=== PATIENT | female | born 1995 | race Caucasian/White ===

== ENCOUNTER 2017-09-07 14:42 | Observation (INO) ==
[2017-09-07] MEDS ORDERED: LEVSIN/MAALOX/LIDOC VISC PO PRN ×2 (15:24→17:01)
[2017-09-07] MEDS ORDERED: NORCO 7.5/325 MG TAB PO PRN ×2 (15:24→17:01)
[2017-09-07] MEDS ORDERED: REGLAN INJ 10 MG VIAL IVP PRN ×2 (15:24→17:01)
[2017-09-07] MEDS ORDERED: PROTONIX INJ 40 MG VIAL IVP SCH (16:00)
[2017-09-07] MEDS ORDERED: NS 1000 ML 1,000 ML IV SCH (16:00)
[2017-09-07 17:09] LABS: BASOPHILS % (AUTO) 0.4 % (0.2-1.0); EOSINOPHILS # (AUTO) 0.2 x10^3/uL (0.0-0.2); EOSINOPHILS % (AUTO) 1.8 % (0.9-2.9); HEMOGLOBIN 15.1 g/dL (12.0-16.0); LYMPHOCYTES # (AUTO) 2.2 X10^3/uL (1.3-2.9); LYMPHOCYTES % (AUTO) 20.3 % (21.0-51.0); MEAN CORPUSCULAR HGB CONC 34.3 g/dL (33.0-35.0); MEAN CORPUSCULAR VOLUME 90.2 fL (80.0-100.0); MEAN PLATELET VOLUME 6.9 fL (7.4-11.0); MONOCYTES # (AUTO) 0.7 x10^3/uL (0.3-0.8); MONOCYTES % (AUTO) 6.4 % (0.0-13.0); NEUTROPHILS # (AUTO) 7.7 x10^3/uL (2.2-4.8); NEUTROPHILS % (AUTO) 71.1 % (42.0-75.0); PLATELET COUNT 365 X10^3/uL (150.0-450.0); RED BLOOD COUNT 4.88 X10^6/uL (3.5-5.4); RED CELL DISTRIBUTION WIDTH 13.6 % (11.6-16.5); WHITE BLOOD COUNT 10.9 X10^3/uL (3.6-10.0)
[2017-09-07] MEDS ORDERED: AMBIEN PO PRN (17:14)
[2017-09-07 17:18] LABS: ALANINE AMINOTRANSFERASE 39 Units/L (12-78); ALBUMIN 3.8 g/dL (3.4-5.0); ALKALINE PHOSPHATASE 66 Units/L (45-150); AMYLASE 44 Units/L (25-115); ASPARTATE AMINO TRANSFERASE 19 Units/L (15-37); BLOOD UREA NITROGEN 11 mg/dL (7-18); CALCIUM 8.1 mg/dL (8.5-10.1); CARBON DIOXIDE 24.1 mmol/L (21-32); CHLORIDE 102 mmol/L (98-107); CREATININE 0.63 mg/dL (0.55-1.02); LIPASE 92 Units/L (73-393); SODIUM 136 mmol/L (136-145); TOTAL PROTEIN 7.4 g/dL (6.4-8.2); eGFR NON BLACK RACES > 60 (>60)
[2017-09-07 17:19] LABS: SERUM PREGNANCY TEST, QUAL POSITIVE >10 mIU/mL
[2017-09-07 17:48] LABS: BILIRUBIN,URINE NEGATIVE (NEGATIVE); BLOOD/HEMOGLOBIN,URINE NEGATIVE (NEGATIVE); GLUCOSE, URINE NEGATIVE (NEGATIVE); KETONES,URINE 2+ (NEGATIVE); LEUKOCYTE ESTERASE ,URINE 1+ (NEGATIVE); NITRITES,URINE NEGATIVE (NEGATIVE); PROTEIN,URINE NEGATIVE (NEGATIVE); UROBILINOGEN,URINE NORMAL (NORMAL)
[2017-09-07 17:56] LABS: APPEARANCE,URINE SLIGHTLY HAZY (CLEAR); BACTERIA,URINE TRACE /HPF (NEGATIVE); COLOR,URINE YELLOW (YELLOW); RBC,URINE 0-2 /HPF (NONE SEEN); SQUAMOUS EPITHELIAL CELL,UR MANY /HPF (NEGATIVE)
[2017-09-07] MEDS ORDERED: ZOFRAN INJ 4 MG VIAL IVP PRN (18:04)
[2017-09-07] MEDS ORDERED: ZOFRAN INJ 4 MG VIAL ONE (18:06)
[2017-09-07 18:20] VITALS: BMI 28.5
--- NOTE | 2017-09-07 18:25 | DR.H&P ---
H&P - History & Physical for Day of: H&P Date: 09/07/17 - Chief Complaint Chief Complaint: ABDOMINAL PAIN, N/V/D, DEHYDRATED - Allergies Allergies/Adverse Reactions: Allergies Allergy/AdvReac Type Severity Reaction Status Date / Time hydromorphone [From Dilaudid] Allergy Unknown Verified 09/07/17 15:27 - History of Present Illness History of Present Illness: 21 WF DIRECT ADMIT FROM DR KRISHNAMURTHY OFFICE WITH CO ABDOMINAL PAIN FOR 4-5 DAYS WITH INTRACTABLE N/V. PT HAS PMH OF REFLUX, PT HAS HAD GALLBLADDER REMOVED, HX STONES PT STATES PAIN IS SIMILAR TO BEFORE SHE GALLBLADDER REMOVED. PT STATES SHE HAS TAKEN PPI'S, ANTACIDS, ANTIEMETICS WITHOUT IMPROVEMENT, CANT KEEP ANYTHING PO DOWN. PT CO GENERALIZED WEAKNESS AND NOTED TO HAVE DRY MM IN OFFICE AND MODERATE DISTRESS DUE TO PAIN. PT ADMITTED FOR TREATEMENT AND EVALUATION OF ABDMONIAL PAIN. - Past Medical History Past Medical History: GERD Additional Medical History: ENDOMETRIOSIS - Past Surgical History Surgical History: Cholecystectomy, Other - Family History Family Medical History: Diabetes Mellitus, Cancer, [place], Hypertension - Social History Does patient currently use any type of tobacco product: No Have you used tobacco products in the last 12 months: No Type of Tobacco Use: None Does any household member use tobacco: Yes (MOTHER AND FATHER) Alcohol Use: None, Occasionally Drug Use: Prescription Drugs - Medications Home Medications: Acetaminophen/Diphenhydramine [Tylenol Pm Ex-Strength Caplet] 1 tab PO HS PRN [History Confirmed 09/07/17] Dicyclomine HCl 1 tab PO BID PRN 09/07/17 [History Confirmed 09/07/17] Famotidine [Acid Enrobing Machine Operator] 1 tab PO DAILY 09/07/17 [History Confirmed 09/07/17] - Review of Systems Constitutional: Chills, Weakness, Malaise Eyes: No Symptoms Reported ENT: No Symptoms Reported Respiratory: No Symptoms Reported Cardiovascular: No Symptoms Reported Gastrointestinal: Nausea, Vomiting, Abdominal Pain, Diarrhea Genitourinary: No Symptoms Reported Musculoskeletal: No Symptoms Reported Skin: No Symptoms Reported Neurological: Weakness - Physical Exam Vital Signs: Temperature 98.4 F Pulse Rate [Left Radial] 102 Respiratory Rate 20 Blood Pressure [Right Arm] 130/85 Blood Pressure 118/69 O2 Sat by Pulse Oximetry 97 Oriented: Normal Eyes: Normal Ear: Normal Nose: Normal Throat: Dry Respiratory: Clear Throughout Cardiovascular: Normal : Normal Auscultation: Bowel Sounds: Increased Tenderness: RUQ, LUQ, Epigastric, Moderate Skin: Decreased Turgur Musculoskeletal: Normal Affect: Anxious Speech Pattern: Clear, Appropriate - Assessment/Plan (1) Abdominal pain Status: Acute Plan: ADMIT, ADMISSION LABS CBC CMP UA, UHCG. IV HYDRATION, PAIN AND [place] CONTROL. ABD SERIES ON ADMISSION, PPI'S. REGLAN IV, NPO (2) Intractable nausea and vomiting Status: Acute (3) Dehydration Status: Acute (4) GERD (gastroesophageal reflux disease) Status: Acute
--- NOTE | 2017-09-07 19:24 | US ---
OB ultrasound Indication: Positive test with abdominal pain, beta HCG is 709 Comparison: None available Technique: Multiple grayscale and color flow Doppler images of the pelvis were obtained. Findings: The uterus measures 4.9 x 3.4 x 3.9 cm. No hypoechoic collection or gestational sac identified within the uterus. Endometrial echo complex is unremarkable. The right ovary demonstrates several small hyp oechoic lesions consistent with cyst. The right ovary measures 2.4 x 2.2 x 3.2 cm with normal color D oppler flow. The left ovary was not able be identified. No pelvic free fluid. Impression: 1.Indeterminate examination as no gestational sac is identified. Findings can be seen in setting of e jose normal IUP, missed or ectopic . At this time there is no sonographic abnormali ty to raise the suspicion for ectopic . Clinical, sonographic and beta HCG follow-up is kehinde mmended. 2. Several small cysts are noted within the right ovary, the size of the ovary and size of cysts do n ot meet criteria for PCOS. 3.The left ovary was not able to be visualized. Reported By:
[2017-09-07] MEDS ORDERED: NS 1000 ML 1,000 ML ONE (20:37)
[2017-09-07] MEDS ORDERED: PHENERGAN INJ 25 MG IV PRN (22:17)
[2017-09-08] MEDS ORDERED: NS 1000 ML 1,000 ML IV SCH (06:00)
[2017-09-08] MEDS ORDERED: PROTONIX INJ 40 MG VIAL IVP SCH (09:00)
[2017-09-08 14:09] LABS: ALANINE AMINOTRANSFERASE 36 Units/L (12-78); ALBUMIN 3.1 g/dL (3.4-5.0); ALKALINE PHOSPHATASE 55 Units/L (45-150); ASPARTATE AMINO TRANSFERASE 20 Units/L (15-37); BASOPHILS % (AUTO) 0.4 % (0.2-1.0); BLOOD UREA NITROGEN 10 mg/dL (7-18); CALCIUM 7.8 mg/dL (8.5-10.1); CARBON DIOXIDE 22.5 mmol/L (21-32); CHLORIDE 106 mmol/L (98-107); COR CA(FOR HYPOALB) 8.5 mg/dL (8.5-10.1); CREATININE 0.63 mg/dL (0.55-1.02); EOSINOPHILS # (AUTO) 0.3 x10^3/uL (0.0-0.2); EOSINOPHILS % (AUTO) 2.5 % (0.9-2.9); HEMATOCRIT 38.8 % (36.0-47.0); HEMOGLOBIN 13.5 g/dL (12.0-16.0); LYMPHOCYTES % (AUTO) 29.4 % (21.0-51.0); MEAN CORPUSCULAR HEMOGLOBIN 31.6 pg (27.0-34.0); MEAN CORPUSCULAR HGB CONC 34.7 g/dL (33.0-35.0); MEAN PLATELET VOLUME 7.2 fL (7.4-11.0); MONOCYTES # (AUTO) 0.8 x10^3/uL (0.3-0.8); MONOCYTES % (AUTO) 7.6 % (0.0-13.0); NEUTROPHILS # (AUTO) 6.2 x10^3/uL (2.2-4.8); NEUTROPHILS % (AUTO) 60.1 % (42.0-75.0); PLATELET COUNT 329 X10^3/uL (150.0-450.0); RED BLOOD COUNT 4.27 X10^6/uL (3.5-5.4); RED CELL DISTRIBUTION WIDTH 13.3 % (11.6-16.5); SODIUM 139 mmol/L (136-145); TOTAL PROTEIN 6.1 g/dL (6.4-8.2); WHITE BLOOD COUNT 10.4 X10^3/uL (3.6-10.0); eGFR NON BLACK RACES > 60 (>60)
[2017-09-08 15:56] VITALS: BP 102/54
--- NOTE | 2017-10-03 22:55 | PCM.DCPLAN ---
Discharge Summary - Admission Date Date of Admission: 09/07/17 - Discharge Date Discharge Date: 09/08/17 - Admission Diagnoses (1) Abdominal pain Status: Acute (2) Dehydration Status: Acute (3) GERD (gastroesophageal reflux disease) Status: Acute (4) Intractable nausea and vomiting Status: Acute - Discharge Diagnoses Discharge Diagnosis: SAME ADMISSION DIAGNOSIS - Discharge Medications Discharge Medications: Home Medication List dicyclomine 1 tab PO BID PRN 09/07/17 [History] diphenhydramine-acetaminophen [Tylenol Pm Ex-Strength Caplet] 1 tab PO HS PRN [History] famotidine [Acid Veterinary Attendant] 1 tab PO DAILY 09/07/17 [History] Prescriptions: - Hospital Course Vital Signs: Temperature 98 F Pulse Rate [Left Radial] 82 Respiratory Rate 20 Blood Pressure [Left Arm] 102/54 Blood Pressure [Right Arm] 130/85 Blood Pressure 118/69 O2 Sat by Pulse Oximetry 98 Latest Lab Results: Laboratory Last Values WBC 10.4 X10^3/uL (3.6-10.0) H 09/08/17 05:10 RBC 4.27 X10^6/uL (3.5-5.4) 09/08/17 05:10 Hgb 13.5 g/dL (12.0-16.0) 09/08/17 05:10 Hct 38.8 % (36.0-47.0) 09/08/17 05:10 MCV 91.0 fL (80.0-100.0) 09/08/17 05:10 MCH 31.6 pg (27.0-34.0) 09/08/17 05:10 MCHC 34.7 g/dL (33.0-35.0) 09/08/17 05:10 RDW 13.3 % (11.6-16.5) 09/08/17 05:10 Plt Count 329 X10^3/uL (150.0-450.0) 09/08/17 05:10 MPV 7.2 fL (7.4-11.0) L 09/08/17 05:10 Neut % (Auto) 60.1 % (42.0-75.0) 09/08/17 05:10 Lymph % (Auto) 29.4 % (21.0-51.0) 09/08/17 05:10 [place] % (Auto) 7.6 % (0.0-13.0) 09/08/17 05:10 Eos % (Auto) 2.5 % (0.9-2.9) 09/08/17 05:10 Baso % (Auto) 0.4 % (0.2-1.0) 09/08/17 05:10 Neut # (Auto) 6.2 x10^3/uL (2.2-4.8) H 09/08/17 05:10 Lymph # (Auto) 3.0 X10^3/uL (1.3-2.9) H 09/08/17 05:10 [place] # (Auto) 0.8 x10^3/uL (0.3-0.8) 09/08/17 05:10 Eos # (Auto) 0.3 x10^3/uL (0.0-0.2) H 09/08/17 05:10 Baso # (Auto) 0.0 X10^3/uL (0.0-0.1) 09/08/17 05:10 Absolute Nucleated RBC 0.1 /100WBC 09/08/17 05:10 Sodium 139 mmol/L (136-145) 09/08/17 05:10 Corrected Sodium TNP 09/08/17 05:10 Potassium 4.1 mmol/L (3.5-5.1) 09/08/17 05:10 Chloride 106 mmol/L (98-107) 09/08/17 05:10 Carbon Dioxide 22.5 mmol/L (21-32) 09/08/17 05:10 BUN 10 mg/dL (7-18) 09/08/17 05:10 Creatinine 0.63 mg/dL (0.55-1.02) 09/08/17 05:10 Est GFR (MDRD) Af Amer > 60 (>60) 09/08/17 05:10 Est GFR (MDRD) Non-Af > 60 (>60) 09/08/17 05:10 Glucose 81 mg/dL (65-99) 09/08/17 05:10 Calcium 7.8 mg/dL (8.5-10.1) L 09/08/17 05:10 Corrected Calcium 8.5 mg/dL (8.5-10.1) 09/08/17 05:10 Total Bilirubin 0.20 mg/dL (0.2-1.0) 09/08/17 05:10 AST 20 Units/L (15-37) 09/08/17 05:10 ALT 36 Units/L (12-78) 09/08/17 05:10 Alkaline Phosphatase 55 Units/L (45-150) 09/08/17 05:10 Total Protein 6.1 g/dL (6.4-8.2) L 09/08/17 05:10 Albumin 3.1 g/dL (3.4-5.0) L 09/08/17 05:10 Globulin 3.0 g/dL (2.5-4.5) 09/08/17 05:10 Albumin/Globulin Ratio 1.0 Ratio (1.1-2.1) L 09/08/17 05:10 Amylase 44 Units/L (25-115) 09/07/17 16:54 Lipase 92 Units/L (73-393) 09/07/17 16:54 HCG, Qual Positive >10 mIU/mL 09/07/17 16:54 HCG, Quant 709 mIU/mL (0-6) H 09/07/17 16:54 Specimen Type Clean catch urine 09/07/17 17:24 Urine Color Yellow (YELLOW) 09/07/17 17:24 Urine Appearance Slightly hazy (CLEAR) 09/07/17 17:24 Urine pH 6.0 (5.0 - 8.0) 09/07/17 17:24 Ur Specific [place] 1.015 (1.000-1.030) 09/07/17 17:24 Urine Protein Negative (NEGATIVE) 09/07/17 17:24 Urine Glucose (UA) Negative (NEGATIVE) 09/07/17 17:24 Urine Ketones 2+ (NEGATIVE) 09/07/17 17:24 Urine Occult Blood Negative (NEGATIVE) 09/07/17 17:24 Urine Nitrite Negative (NEGATIVE) 09/07/17 17:24 Urine Bilirubin Negative (NEGATIVE) 09/07/17 17:24 Urine Urobilinogen Normal (NORMAL) 09/07/17 17:24 Ur Leukocyte Esterase 1+ (NEGATIVE) 09/07/17 17:24 Urine RBC 0-2 /HPF (NONE SEEN) 09/07/17 17:24 Urine WBC 3-5 /HPF (NONE SEEN) 09/07/17 17:24 Ur Squamous Epith Cells Many /HPF (NEGATIVE) 09/07/17 17:24 Urine Bacteria Trace /HPF (NEGATIVE) 09/07/17 17:24 Ur Culture Indicated? No/not indicated 09/07/17 17:24 Hospital Course: 21 WF DIRECT ADMIT FROM DR KRISHNAMURTHY OFFICE WITH CO ABDOMINAL PAIN FOR 4-5 DAYS WITH INTRACTABLE N/V. PT HAS PMH OF REFLUX, PT HAS HAD GALLBLADDER REMOVED, HX STONES PT STATES PAIN IS SIMILAR TO BEFORE SHE GALLBLADDER REMOVED. PT STATES SHE HAS TAKEN PPI'S, ANTACIDS, ANTIEMETICS WITHOUT IMPROVEMENT, CANT KEEP ANYTHING PO DOWN. PT CO GENERALIZED WEAKNESS AND NOTED TO HAVE DRY MM IN OFFICE AND MODERATE DISTRESS DUE TO PAIN. PT ADMITTED FOR TREATMENT AND EVALUATION OF ABDOMINAL PAIN. PATIENT RECEIVE IV HYDRATION. ULTRASOUND WAS NEGATIVE FOR ACUTE FINDINGS. SYMPTOMS IMPROVED AND PATIENT DISCHARGED HOME TO BE FOLLOWED ON OP BASIS. - Discharge Plan Disposition: 01 HOME, SELF-CARE Condition: Stable - Follow ups/Referrals Follow ups/Referrals: MARY GRACE WALTON [Nurse Practitioner] - 3 DAYS SHARRI GUZMAN [Primary Care Provider] - - Instructions
== END 2017-09-08 10:15 | disposition home or self-care (01) ==
LOC: MED/SURG 14:42
PROVIDERS: ADMIT Internal Medicine; ATTEND Internal Medicine
DX: E86.0 Dehydration; R10.84 Generalized abdominal pain; R11.2 Nausea with vomiting, unspecified; R19.7 Diarrhea, unspecified
CPT/HCPCS: 36415; 76801; 80053; 81001; 82150; 83690; 84702; 84703; 85025; A4222; C9113; G0378; J2405; J2550; J7030